=== PATIENT | female | born 1955 | race Caucasian/White ===

== ENCOUNTER 2022-10-07 13:19 | Emergency (ER) | payer MEDICAID ==
[~2022-10-07] VITALS: Ht 157.5 cm; Wt 64.0 kg
[2022-10-07] MEDS ORDERED: IBUP-2029 MT (14:50)
[2022-10-07] MEDS ORDERED: KETOROLAC 60MG/2ML VIAL IM ONE (15:00)
[2022-10-07] MEDS ORDERED: HYDROCODONE/ACETAMINOPHEN 5/325MG TABLET PO ONE (15:00)
[2022-10-07 16:00] VITALS: BP 152/50
== END 2022-10-07 16:35 | disposition home or self-care (01) ==
LOC: ER 13:19
DX: M25.552 Pain in left hip (principal); E11.9 Type 2 diabetes mellitus without complications; I10 Essential (primary) hypertension; W01.0XXA Fall on same level from slipping, tripping and stumbling without subsequent striking against object, initial encounter; Y93.89 Activity, other specified; Y92.89 Other specified places as the place of occurrence of the external cause; Y99.8 Other external cause status
CPT/HCPCS: 73502; 96372; 99283; J1885